=== PATIENT | male | born 1975 | race Caucasian/White ===

== ENCOUNTER → 2022-01-17 | Outpatient (CLI) | payer BC ==
[2022-01-17 08:52] LABS: BASO # 0.1 10^3/uL (0.0-0.2); BASO % 0.8 % (0.0-1.0); EOS # 0.3 10^3/uL (0.0-0.5); EOS % 3.7 % (0.0-3.0); HEMATOCRIT 50.1 % (42.0-52.0); HEMOGLOBIN 15.5 g/dl (13.5-17.5); LYMPH # 3.2 10^3/uL (1.5-5.0); LYMPH % 34.4 % (24.0-44.0); MEAN CORPUSCULAR HGB CONC 30.9 g/dl (32.0-36.5); MEAN CORPUSCULAR VOLUME 83.9 fl (80.0-96.0); MONO # 0.7 10^3/uL (0.0-0.8); MONO % 7.4 % (2.0-8.0); NEUTROPHILS % 53.4 % (36.0-66.0); PLATELET COUNT, AUTOMATED 386 10^3/uL (150-450); RED BLOOD COUNT 5.97 10^6/uL (4.30-6.10); WHITE BLOOD COUNT 9.3 10^3/uL (4.0-10.0)
[2022-01-17 09:24] LABS: HEMOGLOBIN A1c 6.1 %
[2022-01-17 09:29] LABS: ALBUMIN 3.9 GM/DL (3.2-5.2); ALT/SGPT 42 U/L (12-78); BILIRUBIN,TOTAL 0.6 MG/DL (0.2-1.0); BLOOD UREA NITROGEN 17 MG/DL (7-18); CALCIUM LEVEL 9.5 MG/DL (8.5-10.1); CARBON DIOXIDE LEVEL 26 MEQ/L (21-32); CHLORIDE LEVEL 110 MEQ/L (98-107); CHOLESTEROL LEVEL 157 MG/DL (<200); CHOLESTEROL RISK RATIO 3.829 (<5); CREATININE FOR GFR 1.32 MG/DL (0.70-1.30); FREE T4 0.85 NG/DL (0.76-1.46); GLOMERULAR FILTRATION RATE > 60.0 (>60); GLUCOSE, FASTING 107 MG/DL (70-100); HDL CHOLESTEROL 41 MG/DL (>40); LDL CHOLESTEROL 89 MG/DL (<100); NON-HDL-C 116 MG/DL; POTASSIUM SERUM 5.2 MEQ/L (3.5-5.1); SODIUM LEVEL 138 MEQ/L (136-145); TOTAL PROTEIN 7.4 GM/DL (6.4-8.2); TRIGLYCERIDES LEVEL 134 MG/DL (<150)
[2022-01-18 11:12] LABS: TOTAL 25(OH) VITAMIN D 33.9 NG/ML (30.0-100.0)
== END ==
LOC: M LAB 08:24
PROVIDERS: ATTEND Physician Assistant
DX: Z12.5 Encounter for screening for malignant neoplasm of prostate (principal); Z13.220 Encounter for screening for lipoid disorders; Z13.29 Encounter for screening for other suspected endocrine disorder
CPT/HCPCS: 36415; 80053; 80061; 82306; 83036; 84439; 84443; 85025; G0103

== ENCOUNTER → 2022-04-17 | Outpatient (CLI) | payer BC ==
[2022-04-17 09:44] LABS: HEMOGLOBIN A1c 5.7 % (4.0-6.0)
[2022-04-17 10:00] LABS: ALBUMIN 3.9 G/DL (3.2-5.2); ALKALINE PHOSPHATASE 67 U/L (46-116); ALT/SGPT 39 U/L (7.0-40); AST/SGOT 27 U/L (<34); BILIRUBIN,TOTAL 1.2 MG/DL (0.3-1.2); BLOOD UREA NITROGEN 18 MG/DL (9-23); CALCIUM LEVEL 9.7 MG/DL (8.5-10.1); CARBON DIOXIDE LEVEL 28 MMOL/L (20-31); CHLORIDE LEVEL 106 MMOL/L (98-107); CREATININE FOR GFR 1.08 MG/DL (0.70-1.30); GLOMERULAR FILTRATION RATE > 60.0 (>60); GLUCOSE, FASTING 99 MG/DL (60-100); POTASSIUM SERUM 5.2 MMOL/L (3.5-5.1); SODIUM LEVEL 142 MMOL/L (136-145); TOTAL PROTEIN 7.3 G/DL (5.7-8.2)
[2022-04-17 10:01] LABS: TOTAL 25(OH) VITAMIN D 23.9 NG/ML (20.0-100.0)
== END ==
LOC: M LAB 08:09
PROVIDERS: ATTEND Physician Assistant
DX: R73.01 Impaired fasting glucose (principal)

== ENCOUNTER 2022-12-31 08:17 | Day surgery (SDC) | payer BC ==
[~2022-12-31] VITALS: Ht 175.3 cm; Wt 105.5 kg
[~2022-12-31 08:17] MED LIST: NS 1,000 ML IV ONE
[2022-12-31 09:20] VITALS: TEMP 97.2
[2022-12-31 09:45] VITALS: BP 109/55; O2SAT 98
== END 2022-12-31 09:50 | disposition home or self-care (01) ==
LOC: M OPP 08:17
PROVIDERS: ATTEND Surgery
DX: Z12.11 Encounter for screening for malignant neoplasm of colon (principal); K63.5 Polyp of colon; K64.0 First degree hemorrhoids; K57.30 Diverticulosis of large intestine without perforation or abscess without bleeding; F17.200 Nicotine dependence, unspecified, uncomplicated

== ENCOUNTER → 2024-05-23 | Outpatient (CLI) | payer BC | LOC: M SLEEP HO 11:19 | PROVIDERS: ATTEND Physician Assistant | DX: G47.10 Hypersomnia, unspecified (principal); G47.33 Obstructive sleep apnea (adult) (pediatric) ==